=== PATIENT | female | born 1990 | race Two or more races ===

== ENCOUNTER 2022-01-22 14:45 | Emergency (ER) | payer OTHER ==
[~2022-01-22] VITALS: Ht 165.1 cm; Wt 59.9 kg
[2022-01-22] MEDS ORDERED: DICLOFENAC SODI75 MG PO (19:30)
[2022-01-22] MEDS ORDERED: NORFLEX100MG PO (19:30)
== END 2022-01-22 19:42 | disposition home or self-care (01) ==
LOC: ER 14:45
DX: M54.50 Low back pain, unspecified (principal); E03.9 Hypothyroidism, unspecified

== ENCOUNTER 2022-04-04 21:07 | Emergency (ER) | payer OTHER ==
[~2022-04-04 21:07] MED LIST: DICLOFENAC SODI75 MG PO; NORFLEX100MG PO
[2022-04-04] MEDS ORDERED: TIROSINT50 MCG PO (21:26)
== END 2022-04-04 22:40 | disposition home or self-care (01) ==
LOC: ER 21:07
DX: H60.92 Unspecified otitis externa, left ear (principal)

== ENCOUNTER 2024-01-23 15:16 | Emergency (ER) | payer OTHER ==
[~2024-01-23] VITALS: Ht 167.6 cm; Wt 59.0 kg
[~2024-01-23 15:16] MED LIST changes: +TIROSINT50 MCG PO
[2024-01-23] MEDS ORDERED: CEFTRIAXONE SODIUM 1,000 MG VIAL IM STA (16:48)
[2024-01-23] MEDS ORDERED: LIDOCAINE HCL 4% Topic SOLUTION TOP STA (16:49)
[2024-01-23] MEDS ORDERED: ACETAMINOPHEN 500 MG GEL..CAP PO STA ×2 (16:50→18:58)
[2024-01-23] MEDS ORDERED: ACETAMINOPHEN 500 MG GEL..CAP PO ONE ×2 (16:57→18:59)
[2024-01-23] MEDS ORDERED: CEFTRIAXONE SODIUM 1,000 MG VIAL ONE (16:58)
[2024-01-23] MEDS ORDERED: CORTISPORIN EAR10 M1 OPHT (17:04)
[2024-01-23] MEDS ORDERED: KETOROLAC TROMETHAMINE 30 MG VIAL IM STA (17:07)
[2024-01-23] MEDS ORDERED: KETOROLAC TROMETHAMINE 30 MG VIAL ONE (17:16)
[2024-01-23] MEDS ORDERED: SWIM EAR DRO29.57 ML OT (17:40)
[2024-01-23] MEDS ORDERED: CORTISPORIN EAR10 M1 OTIC (17:40)
[2024-01-23 17:44] LABS: HEMATOCRIT 38.5 % (36.0-45.00); HEMOGLOBIN 13.5 g/dL (12.0-15.00); MEAN CELL VOLUME 94.3 fL (80.00-100.00); MEAN CORPUSCULAR HEMOGLOBIN 33.1 pg (27.00-32.0); MEAN CORPUSCULAR HGB CONC 35.1 g/dl (32.0-36.0); PLATELET COUNT 232 K/uL (150-450); RED BLOOD COUNT 4.08 M/uL (4.00-6.00); RED CELL DISTRIBUTION WIDTH 12.6 % (11.5-14.5)
== END 2024-01-23 19:55 | disposition home or self-care (01) ==
LOC: ER 15:18
PROVIDERS: Emergency Medicine
DX: H60.8X3 Other otitis externa, bilateral (principal); Z91.013 Allergy to seafood; Z20.822 Contact with and (suspected) exposure to COVID-19
CPT/HCPCS: 36415; 96372; 99282; J0696; J1885

== ENCOUNTER 2024-03-19 01:07 | Emergency (ER) | payer OTHER ==
[~2024-03-19] VITALS: Ht 162.6 cm; Wt 75.7 kg
[~2024-03-19 01:07] MED LIST changes: +CORTISPORIN EAR10 M1 OPHT; +CORTISPORIN EAR10 M1 OTIC; +SWIM EAR DRO29.57 ML OT
[2024-03-19] MEDS ORDERED: METHYLPREDNISOLONE SOD SUCC 125 MG VIAL IV STA (01:25)
[2024-03-19] MEDS ORDERED: ALBUTEROL SULFATE 3 ML/2.5 MG AMPUL.NEB IH SCH ×2 (01:30→02:00)
[2024-03-19] MEDS ORDERED: 0.9 % SODIUM CHLORIDE 1,000 ML IV ONE (01:30)
[2024-03-19 01:37] LABS: ABG PH 7.428 (7.35-7.45)
[2024-03-19 01:38] LABS: ABG PO2 87.6 mmHg (80-100); ABG pCO2 29.7 mmHg (35-45); BASE EXCESS -3.8 mmol/l; BICARBONATE 19.2 mmol/l (23-25); SaO2 96.8 %; Tco2 20.1 mmol/l; allen test SATISFACTORY; o2 21 %; puncture site RADIAL LEFT
[2024-03-19 01:51] LABS: HEMATOCRIT 42.5 % (36.0-45.00); HEMOGLOBIN 14.3 g/dL (12.0-15.00); MEAN CELL VOLUME 95.4 fL (80.00-100.00); MEAN CORPUSCULAR HGB CONC 33.6 g/dl (32.0-36.0); PLATELET COUNT 264 K/uL (150-450); RED BLOOD COUNT 4.45 M/uL (4.00-6.00); RED CELL DISTRIBUTION WIDTH 12.6 % (11.5-14.5)
[2024-03-19 02:14] LABS: ALBUMIN 4.2 gm/dL (3.4-5.0); ALKALINE PHOSPHATASE 54 U/L (50-136); ALT/SGPT 27 U/L (12-78); ANION GAP 13 (10.0-20.0); AST/SGOT 16 U/L (15-37); BILIRUBIN TOTAL 0.39 mg/dL (0.3-1.2); BLOOD UREA NITROGEN 15 mg/dL (7-18); BUN CREA RATIO 18 (7.0-25.0); CALCIUM 9.4 mg/dL (8.5-10.1); CARBON DIOXIDE 24 mEq/L (21-32); CHLORIDE 109 mmol/L (98-107); CREATININE SERUM 0.82 mg/dL (0.55-1.02); GFR 81.31; GLOBULINA 3.8 G/DL (2.4-3.5); GLUCOSE FASTING 96 mg/dL (65-100); OSMOLALITY SERUM 284 MOSM/KG (275-295); POTASSIUM 3.78 mEq/L (3.5-5.1); SODIUM 142 mmol/L (136-145)
[2024-03-19 02:17] LABS: HCG QUANTITATIVE < 1 mUI/mL (1-3)
[2024-03-19] MEDS ORDERED: FAMOTIDINE/PF 20 MG/2 ML VIAL IV ONE (03:00)
[2024-03-19] MEDS ORDERED: LACTULOSE 20 G/30 ML BLIST.PACK PO ONE (03:00)
[2024-03-19 03:25] LABS: PH,URINE 5.5 (5.0-8.0); URINE APPEARANCE Clear; URINE BILIRRUBIN Negative (NEGATIVE); URINE BLOOD Negative; URINE COLOR Yellow; URINE GLUCOSE Negative (NEGATIVE); URINE KETONE 15 (NEGATIVE); URINE LEUKOCYTE Trace; URINE NITRATE Negative; URINE PROTEIN Negative (NEGATIVE); URINE UROBILINOGEN 0.2 E.U./dl
[2024-03-19 03:29] LABS: URINE BACTERIA 868.1 uL (0.0-1933); URINE EPITHELIAL CELLS 23.6 uL (0.0-38.8); URINE WBC 34.1 uL (0.0-23.2)
[2024-03-19 03:52] LABS: URINE CAST 0.15 uL (0.0-1.40); URINE RBC 0.4 uL (0.0-20.8)
[2024-03-19] MEDS ORDERED: MEPERIDINE HCL/PF 25 MG/ML VIAL IM ONE (05:30)
[2024-03-19] MEDS ORDERED: PROMETHAZINE HCL 25 MG/ML AMPUL IM ONE (05:30)
[2024-03-19 06:51] LABS: ALBUMIN 4.2 gm/dL (3.4-5.0); ALKALINE PHOSPHATASE 53 U/L (50-136); ALT/SGPT 25 U/L (12-78); AMYLASE 61 U/L (25-115); AST/SGOT 17 U/L (15-37); BILIRUBIN TOTAL 0.39 mg/dL (0.3-1.2); BILIRUBIN,CONJUGATED < 0.10 mg/dL (0.0-0.2); BILIRUBIN,UNCONJUGATED 0.29 mg/dL (0.0-0.6); LIPASE 47 U/L (13-75); TOTAL PROTEIN 7.8 gm/dL (6.4-8.2)
[2024-03-19] MEDS ORDERED: BUTALB/ACETAMINOPHEN/CAFFEINE 1 TAB TABLET PO ONE (09:00)
== END 2024-03-19 13:42 | disposition home or self-care (01) ==
LOC: ER 01:09
PROVIDERS: General Practice
DX: K59.00 Constipation, unspecified (principal); R06.02 Shortness of breath; Z87.09 Personal history of other diseases of the respiratory system; Z91.013 Allergy to seafood; R51.9 Headache, unspecified